=== PATIENT | male | born 1960 | race Caucasian/White ===

== ENCOUNTER → 2020-07-10 | Outpatient (CLI) | payer BC ==
--- NOTE | 2020-07-12 23:56 | CT ---
EXAMINATION TYPE: CT abdomen pelvis w con DATE OF EXAM: 07/10/2020 COMPARISON: None HISTORY: Abdominal pain, hernia CT DLP: 946.5 mGycm Automated exposure control for dose reduction was used. TECHNIQUE: Helical acquisition of images was performed from the lung bases through the pelvis. CONTRAST: Performed with Oral Contrast and with IV Contrast, patient injected with 100 mL of Isovue 300. FINDINGS: LUNG BASES: Normal. LIVER: Normal. BILIARY SYSTEM: Normal. PANCREAS: Normal. SPLEEN: Normal. ADRENALS: Normal. KIDNEYS: Normal. BOWEL: No obstruction. Within the umbilical region there is a 2.1 x 2.8 x 2.7 cm eccentric masslike thickening of the anterior small bowel loop and a small fat-containing umbilical hernia. There is foc i of gas within this soft tissue thickening making a somewhat linear course towards the abdominal wal l (8:62) and a focus of gas seen within the umbilical subcutaneous soft tissue thickening (8:63). The re is no oral contrast extravasation seen within the masslike thickening or umbilical hernia. PERITONEUM: No pneumoperitoneum. No free fluid. LYMPH NODES: No lymphadenopathy. PELVIS: Normal. VASCULATURE: No abdominal aortic aneurysm. MUSCULOSKELETAL: Degenerative changes of the spine. Grade 1 anterolisthesis of L3 on L4. IMPRESSION: Small fat-containing umbilical hernia, with 2.1 x 2.8 x 2.7 cm eccentric area of masslike thickening of the adjacent anterior small bowel loop just deep to the abdominal wall. Foci of gas within the sof t tissue thickening and within the umbilicus subcutaneous soft tissue may represent fistulous communi cation, however no continuous tract is seen and there is no oral contrast extravasation. If patient h as had prior herniorrhaphy, findings may represent postsurgical and masslike thickening with tetherin g and/or erosion of the small bowel loop. Differential also includes neoplasm.
== END | disposition home or self-care (01) ==
LOC: RADCTMAIN 16:18
PROVIDERS: ATTEND Family Medicine
DX: K42.9 Umbilical hernia without obstruction or gangrene (principal)
CPT/HCPCS: 74177; Q9967

== ENCOUNTER 2020-09-24 12:30 | Inpatient (IN) | payer BC ==
[2020-09-15 16:10] VITALS: BMI 27.2
[2020-10-02] MEDS ORDERED: ACETAMINOPHEN TAB 500 MG TAB PO PRN (05:00)
[2020-10-02] MEDS ORDERED: ALVIMOPAN 12 MG CAPSULE PO PRN (05:00)
[2020-10-02] MEDS ORDERED: HEPARIN SODIUM,PORCINE 5,000 UNIT/ML 1 ML VIAL SQ PRN (06:00)
[2020-10-02] MEDS ORDERED: LACTATED RINGERS 1,000 ML IV ONE ×3 (08:46→11:19)
[2020-10-02] MEDS ORDERED: ONDANSETRON 4 MG/2 ML VIAL IVP ONE (09:02)
[2020-10-02] MEDS ORDERED: LIDOCAINE 1% (10MG/ML) FOR IV START INTRADERMA PRN (09:02)
[2020-10-02] MEDS ORDERED: DEXAMETHASONE SOD PHOSPHATE 4 MG/ML 1 ML VIAL IV ONE (09:02)
--- NOTE | 2020-10-02 09:36 | P.GSHP ---
History of Present Illness H&P Date: 10/02/20 Chief Complaint: Umbilical wound 60-year-old male seen in the office one month ago. Patient has complaints of drainage of purulent fluid from the umbilicus for the last few months. Patient with history of umbilical hernia repair with mesh 12 years ago. Patient had recent CAT scan showing thickened bowel loops with air in the subcutaneous space, fistula not excluded. Patient says the draining region will open and close periodically. Mild discomfort. No fevers. No air or stool noted. Past Medical History Additional Past Medical History / Comment(s): umbilical wound History of Any Multi-Drug Resistant Organisms: None Reported Past Surgical History: Hernia Repair, Orthopedic Surgery Additional Past Surgical History / Comment(s): umbilical hernia repair, sinus surgery,rt knee repair torn meniscus, wisdom teeth Past Anesthesia/Blood Transfusion Reactions: No Reported Reaction Smoking Status: Former smoker - Past Family History Father Family Medical History: Cancer Additional Family Medical History / Comment(s): lung cancer Brother(s) Family Medical History: Cancer Medications and Allergies Home Medications Medication Instructions Recorded Confirmed Type Cholecalciferol [Vitamin D3 (25 2,000 unit PO DAILY 09/15/20 10/02/20 History Mcg = 1000 Iu)] Multivitamin/Iron/Folic Acid 1 each PO DAILY 09/15/20 10/02/20 History [Centrum Adults Tablet] Catarina-3 Fatty Acids/Fish Oil [Fish 1 each PO DAILY 09/15/20 10/02/20 History Oil 1,000 mg Softgel] Zinc 50 mg PO DAILY 09/15/20 10/02/20 History Allergies Allergy/AdvReac Type Severity Reaction Status Date / Time No Known Allergies Allergy Verified 10/02/20 08:46 Surgical - Exam Vital Signs Temp Pulse Resp BP Pulse Ox 97.8 F 98 16 146/91 98 10/02/20 09:15 10/02/20 09:15 10/02/20 09:15 10/02/20 09:15 10/02/20 09:15 Physical exam: General: Well-developed, well-nourished HEENT: Normocephalic, sclerae nonicteric Abdomen: Nontender, nondistended, wound at base of umbilicus with previous curvilinear infraumbilical scar, serosanguineous drainage noted Extremities: No edema Neuro: Alert and oriented Assessment and Plan (1) Open wound of umbilical region Narrative/Plan: Will proceed with exploration umbilical wound with plans for umbillectomy. Patient may require mesh removal and or conversion to laparotomy for bowel resection. Risks of bleeding, infection, recurrent wound, need for mesh removal, recurrent hernia, anastomotic leak if bowel resection required, abscess, adhesions, loss of bellybutton, anesthesia related complications. He understands and wishes to proceed. Current Visit: Yes Status: Acute Code(s): S31.105A - UNSP OPN WND ABD WALL, PERIUMB RGN W/O PENET PERIT CAV, INIT SNOMED Code(s): 941423537
[2020-10-02] MEDS ORDERED: NEOSTIGMINE 1 MG/ML 10 ML VIAL ONE (09:45)
[2020-10-02] MEDS ORDERED: GLYCOPYRROLATE 0.2 MG/ML 2 ML VIAL ONE (09:45)
[2020-10-02] MEDS ORDERED: fentaNYL (PF) 50 MCG/ML 2 ML AMP ONE (09:45)
[2020-10-02] MEDS ORDERED: LIDOCAINE 1% INJ 10MG/ML (20 ML MDV) ONE (09:45)
[2020-10-02] MEDS ORDERED: SUCCINYLCHOLINE CHLORIDE 100 MG/5 ML SYR IV ONE (09:45)
[2020-10-02] MEDS ORDERED: ROCURONIUM 10 MG/ML (10 ML VIAL) IV ONE (09:45)
[2020-10-02] MEDS ORDERED: MIDAZOLAM 2 MG/2 ML VIAL ONE (09:45)
[2020-10-02] MEDS ORDERED: PROPOFOL 10 MG/ML 20 ML VIAL IV ONE (09:45)
[2020-10-02] MEDS ORDERED: metroNIDAZOLE-NS PMX 500 MG in SALINE 1 100ML.BAG IVPB ONE (10:30)
[2020-10-02] MEDS ORDERED: ONDANSETRON 4 MG/2 ML VIAL IVP PRN (11:43)
[2020-10-02] MEDS ORDERED: METOCLOPRAMIDE 5 MG/ML 2 ML VIAL IVP PRN (11:43)
[2020-10-02] MEDS ORDERED: MEPERIDINE 50 MG/ML SYRINGE IVP ONE ×2 (11:50→12:03)
[2020-10-02] MEDS: KETOROLAC 15 MG/ML 1 ML VIAL IVP PRN (11:52)
--- NOTE | 2020-10-02 12:30 | P.OP ---
Date of Procedure: 10/02/20 Procedure(s) Performed: PREOPERATIVE DIAGNOSIS: Umbilical wound, ventral hernia POSTOPERATIVE DIAGNOSIS: Umbilectomy, small bowel resection, removal prosthetic mesh, repair ventral hernia PROCEDURE: Umbilical herniorrhaphy SURGEON: Lalito EBL: Minimal ANESTHESIA: General COMPLICATIONS: None OPERATIVE PROCEDURE: The patient was placed in the operating table in the supine position. An elliptical incision was made around the umbilicus. Dissection through the subcutaneous fat took place using electrocautery. As we were dissecting above the umbilicus a portion of preperitoneal fat was identified coming through a ventral hernia defect measuring approximately 1 cm in size. This was 2 cm above the base of the umbilicus. As we approached the base of the umbilicus we saw that there was a dark material and as we inspected this further noticed that this represented mesh that was adherent to the overlying umbilicus. The fascia was opened. We lengthened our incision slightly superiorly and inferiorly. I entered the peritoneal cavity. There was 2 loops of bowel that were densely adherent to the peritoneum at the umbilicus. As we inspected this more closely and continued our dissection we identified that the mesh was present in the lumen of these 2 bowel loops that were stuck to one another. T hankfully these 2 bowel loops were in close proximity. Once we had the bowel completely freed from the fascia the bowel was divided proximal and distal to the fistula segment using a linear 75 stapler. The antimesenteric portion of the staple line was excised and a [id number] anastomosis took place using a linear 75 stapler. The remaining defect was closed using a TX 60 device. The TX 60 stapler line was imbricated using interrupted 3-0 GI silk sutures. The mesentery had been divided using a LigaSure device. The specimen was passed off at that time. A 3-0 GI silk crotch stitch was placed. The mesenteric defect was reapproximated using a running 3-0 Vicryl suture. The fascia was then carefully inspected. One additional small area was palpated and thought to represent a small piece of mesh and this was excised. No additional mesh was evident. After the fascial edges were debrided sharply we reapproximated using interrupted [id number] #1 Vicryl sutures. The subcutaneous tissues were closed using 3-0 Vicryl sutures. Skin was closed using uri. Sterile dressing applied. DISPOSITION: Stable to recovery room
[2020-10-02] MEDS: LACTATED RINGERS 1,000 ML IV SCH (14:34)
[2020-10-02] MEDS: D5-0.45% NACL WITH KCL 20MEQ/L 1,000 ML IV SCH ×2 (16:54→21:25)
[2020-10-02] MEDS: PIPERACILLIN-TAZOBACTAM 3.375 GM in SODIUM CHLORIDE 0.9% 100 ML IVPB SCH ×2 (16:55→23:16)
[2020-10-02] MEDS: HEPARIN SODIUM,PORCINE 5,000 UNIT/ML 1 ML VIAL SQ SCH ×2 (17:11→23:16)
[2020-10-02] MEDS: HYDROmorphone 1 MG/ML 1 ML SYRINGE IVP PRN (21:24)
[2020-10-02] MEDS: metroNIDAZOLE-NS PMX 500 MG in SALINE 1 100ML.BAG IVPB SCH (21:24)
[2020-10-02] MEDS: FAMOTIDINE 20 MG/2 ML VIAL IV SCH (21:24)
--- NOTE | 2020-10-02 22:14 | CONS ---
CONSULTATION I am covering for Dr. Hoskins. DATE OF SERVICE: 10/02/2020 REASON FOR CONSULTATION: Advice regarding smoking and other medical issues, requested by Dr. Starkey. HISTORY OF PRESENT ILLNESS: This 60-year-old gentleman with a past medical history of hyperlipidemia, history of umbilical wound, hernia repair, history of DJD, underwent umbilical herniorrhaphy by Dr. Starkey. The patient tolerated the procedure well. There is no history of any fever, rigor or chills. No history of headache, loss of consciousness, seizures at this time. PAST MEDICAL HISTORY: History of umbilical wound, history of hernia surgery, DJD. MEDICATIONS: Medications prior to admission include zinc, omega-3 fatty acids, multivitamins, cholecalciferol, oxycodone, Augmentin. ALLERGIES: NONE. FAMILY HISTORY: History of lung cancer in the family. SOCIAL HISTORY: Occasional alcohol intake. REVIEW OF SYSTEMS: ENT: No diminished hearing. No diminished vision. CARDIOVASCULAR SYSTEM: No angina, palpitations. RESPIRATORY SYSTEM: As mentioned earlier. GI: As mentioned earlier. : No dysuria or retention. NERVOUS SYSTEM: No numbness, weakness. ALLERGY/IMMUNOLOGY: No asthma, hayfever. MUSCULOSKELETAL: As mentioned earlier. HEMATOLOGY/ONCOLOGY: No history of anemia. ENDOCRINE: No history of diabetes, hypothyroidism. CONSTITUTIONAL: As mentioned earlier. DERMATOLOGY: Negative. RHEUMATOLOGY: Negative. PSYCHIATRY: As mentioned earlier. PHYSICAL EXAMINATION: Patient alert and x3. Pulse 72, blood pressure 102/72, respiration 20, temperature normal, pulse ox 94% on room air. HEENT: Conjunctivae normal. NECK: No jugular venous distention. CARDIOVASCULAR SYSTEM: S1, S2 muffled. RESPIRATORY SYSTEM: Breath sounds diminished at the bases. No rhonchi. No crackles. ABDOMEN: Soft. Status post surgery. No mass palpable. LEGS: No edema. No swelling. NERVOUS SYSTEM: Higher functions as mentioned earlier. Moves all 4 limbs. No focal motor or sensory deficit. LYMPHATICS: No lymph node palpable in neck, axillae or groin. SKIN: No ulcer, rash, bleeding. JOINTS: No active deforming arthropathy. LABS: Cholesterol is 229. Other labs are normal. ASSESSMENT: 1. Status post umbilical herniorrhaphy for umbilical wound and ventral hernia. 2. History of degenerative joint disease. 3. History of sinus surgery. 4. Hyperlipidemia. 5. Remote history of nicotine dependence. 6. FULL CODE. RECOMMENDATIONS AND DISCUSSION: In this 69-year-old gentleman who presented after surgery, at this time I would recommend resuming the home medications. DVT prophylaxis. Incentive spirometry. I would also recommend to follow up with the primary physician closely regarding the hyperlipidemia which was noted recently. Otherwise, we will follow the patient closely with you. Thank you, Dr. Starkey, for letting us participate in the care of this patient. MMBRANDONL / IJN: [id number] /
[2020-10-03] MEDS: HYDROmorphone 1 MG/ML 1 ML SYRINGE IVP PRN (05:36)
[2020-10-03] MEDS: D5-0.45% NACL WITH KCL 20MEQ/L 1,000 ML IV SCH ×3 (05:37→21:16)
[2020-10-03] MEDS: metroNIDAZOLE-NS PMX 500 MG in SALINE 1 100ML.BAG IVPB SCH ×3 (05:37→20:15)
[2020-10-03 06:44] LABS: Basophils % (A) 0 %; Eosinophils % (A) 0 %; HCT 36.5 % (39.0-53.0); HGB 12.4 gm/dL (13.0-17.5); Lymphocytes # (A) 1.3 k/uL (1.0-4.8); Lymphocytes % (A) 9 %; MCH 29.8 pg (25.0-35.0); MCV 87.6 fL (80.0-100.0); Monocytes % (A) 7 %; Neutrophils # (A) 11.5 k/uL (1.3-7.7); Neutrophils % (A) 82 %; Platelet Count 248 k/uL (150-450); RBC 4.17 m/uL (4.30-5.90); RDW 12.9 % (11.5-15.5); WBC 14.1 k/uL (3.8-10.6)
[2020-10-03] MEDS ORDERED: HYDROmorphone 0.5 MG/0.5 ML SYRINGE IVP PRN (07:00)
[2020-10-03] MEDS: LACTATED RINGERS 1,000 ML IV SCH (07:06)
[2020-10-03] MEDS: PIPERACILLIN-TAZOBACTAM 3.375 GM in SODIUM CHLORIDE 0.9% 100 ML IVPB SCH ×3 (07:50→23:18)
[2020-10-03] MEDS: ALVIMOPAN 12 MG CAPSULE PO SCH ×2 (07:51→20:14)
[2020-10-03] MEDS: FAMOTIDINE 20 MG/2 ML VIAL IV SCH ×2 (07:51→20:13)
[2020-10-03] MEDS: HEPARIN SODIUM,PORCINE 5,000 UNIT/ML 1 ML VIAL SQ SCH ×3 (07:51→23:17)
[2020-10-03] MEDS: KETOROLAC 15 MG/ML 1 ML VIAL IVP PRN ×3 (09:25→23:24)
[2020-10-03 09:38] LABS: African American GFR (CKD) 75.7 (60.0-200.0); Anion Gap 8.8 mmol/L (4.00-12.00); BUN/Creat Ratio 14.17 Ratio (12.00-20.00); Calcium 8.3 mg/dL (8.7-10.3); Carbon Dioxide 24.2 mmol/L (21.6-31.8); Non-African American GFR(CKD) 65.3 (60.0-200.0); Potassium 4.6 mmol/L (3.5-5.5)
--- NOTE | 2020-10-03 10:40 | P.PN ---
Progress Note - Text Progress Note Date: 10/03/20 The patient has some complaints of incisional pain. On exam her vital signs are stable. Abdomen soft. Incision is clean dry tach. Status post small bowel resection and removal of umbilical mesh. Patient will continue receive supportive care. We will remove his Dyer catheter this morning.
[2020-10-03 14:51] LABS: Appearance,Urine Clear (Clear); Bilirubin,Urine Negative (Negative); Blood,Urine Negative (Negative); Color,Urine Light Yellow; Glucose,Urine (UA) Negative (Negative); Ketones,Urine Negative (Negative); Leukocyte Esterase,Urine Small (Negative); Nitrite,Urine Negative (Negative); PH, Urine 5.5 (5.0-8.0); Protein,Urine Negative (Negative); RBC,Urine 1 /hpf (0-5); Specific Gravity,Urine 1.009 (1.001-1.035); Urobilinogen,Urine <2.0 mg/dL (<2.0); WBC,Urine 9 /hpf (0-5)
--- NOTE | 2020-10-03 15:37 | PN ---
PROGRESS NOTE DATE OF SERVICE: 10/03/2020 I am covering for Dr. Hoskins. This 60-year-old gentleman who was admitted after umbilical herniorrhaphy. He still complains of abdominal pain. No chest pain. No palpitations. No fever. The patient had mild fever yesterday. PHYSICAL EXAMINATION: Alert and oriented x3. Pulse 69, blood pressure 120/60, respiration 18, temperature 98.1, pulse ox 94% on room air. HEENT: Conjunctivae normal. NECK: No JVD. CARDIOVASCULAR: S1, S2. RESPIRATION: Breath sounds diminished in the bases. No rhonchi. No crackles. ABDOMEN: Soft. Status post surgery. LEGS are no edema. No swelling. NERVOUS SYSTEM: No focal deficits. LABS: WBC 14.1, hemoglobin 12.4, calcium is 8.3. UA noted. 9 WBCs. ASSESSMENT: 1. Status post umbilical herniorrhaphy from umbilical wound and ventral hernia. 2. History of degenerative joint disease. 3. Possible acute urinary tract infection. 4. History of sinus surgery. 5. Hyperlipidemia. 6. Remote history of nicotine dependence. 7. FULL CODE. RECOMMENDATIONS AND DISCUSSION: I recommend to continue current medications, management and symptomatic treatment. I recommend short course of antibiotics. Otherwise, urine culture. Continue the rest of medications. Further recommendations to follow. MMODL / IJN: [id number] /
[2020-10-04] MEDS: metroNIDAZOLE-NS PMX 500 MG in SALINE 1 100ML.BAG IVPB SCH ×3 (03:42→19:32)
[2020-10-04] MEDS: D5-0.45% NACL WITH KCL 20MEQ/L 1,000 ML IV SCH ×3 (03:43→19:31)
[2020-10-04 06:27] LABS: Basophils # (A) 0.1 k/uL (0-0.2); Basophils % (A) 0 %; Eosinophils # (A) 0.1 k/uL (0-0.7); Eosinophils % (A) 1 %; HCT 32.3 % (39.0-53.0); HGB 11.5 gm/dL (13.0-17.5); Lymphocytes # (A) 1.7 k/uL (1.0-4.8); Lymphocytes % (A) 15 %; MCHC 35.5 g/dL (31.0-37.0); MCV 87.3 fL (80.0-100.0); Monocytes # (A) 0.7 k/uL (0-1.0); Monocytes % (A) 6 %; Neutrophils # (A) 8.7 k/uL (1.3-7.7); Neutrophils % (A) 76 %; Platelet Count 209 k/uL (150-450); RDW 12.8 % (11.5-15.5); WBC 11.4 k/uL (3.8-10.6)
[2020-10-04] MEDS: FAMOTIDINE 20 MG/2 ML VIAL IV SCH ×2 (07:13→19:31)
[2020-10-04] MEDS: ACETAMINOPHEN TAB 325 MG TAB PO PRN ×2 (07:13→22:41)
[2020-10-04] MEDS: HEPARIN SODIUM,PORCINE 5,000 UNIT/ML 1 ML VIAL SQ SCH ×3 (07:13→20:26)
[2020-10-04] MEDS: ALVIMOPAN 12 MG CAPSULE PO SCH ×2 (07:14→19:02)
[2020-10-04] MEDS: PIPERACILLIN-TAZOBACTAM 3.375 GM in SODIUM CHLORIDE 0.9% 100 ML IVPB SCH ×3 (07:14→23:00)
[2020-10-04 10:02] LABS: African American GFR (CKD) 84.1 (60.0-200.0); Anion Gap 4.8 mmol/L (4.00-12.00); BUN/Creat Ratio 12.73 Ratio (12.00-20.00); Calcium 8.5 mg/dL (8.7-10.3); Carbon Dioxide 25.2 mmol/L (21.6-31.8); Non-African American GFR(CKD) 72.6 (60.0-200.0)
[2020-10-04] MEDS: LACTATED RINGERS 1,000 ML IV SCH (10:24)
--- NOTE | 2020-10-04 11:22 | P.PN ---
Progress Note - Text Progress Note Date: 10/04/20 The patient did have some pain control issues last night. He appears to be low but grumpy this morning. On exam vital signs are stable abdomen soft her incisions clean dry tach. Patient was educated onset spirometer. He will attempt to use it more today. He will have his diet slowly advanced.
--- NOTE | 2020-10-04 17:50 | XR ---
EXAMINATION TYPE: XR chest 1V portable DATE OF EXAM: 10/04/2020 COMPARISON: NONE HISTORY: Pneumonia. Short of breath. TECHNIQUE: FINDINGS: Heart and mediastinum are normal. Lungs are clear. Diaphragm is normal. Bony thorax appears normal. IMPRESSION: Normal chest.
--- NOTE | 2020-10-04 18:15 | PN ---
PROGRESS NOTE DATE OF SERVICE: 10/04/2020 This 60-year-old gentleman who was admitted with umbilical herniorrhaphy from umbilical wound and ventral hernia, is being closely monitored. Patient is complaining of no chest pain. No palpitations. No fever. Patient has mild UTI. PHYSICAL EXAMINATION: Alert and oriented x3. Pulse is 97. Blood pressure 140/80, respiration 17, temperature is 100.4, pulse ox 93% on room air. HEENT is conjunctivae normal. NECK: No JVD. CARDIOVASCULAR: S1, S2 normal. RESPIRATORY: Breath sounds diminished in the bases. No rhonchi. No crackles. ABDOMEN: Soft, status post surgery. LEGS are no edema. No swelling. NERVOUS SYSTEM: No focal deficits. LABS: WBC 11.4, hemoglobin 11.5. ASSESSMENT: 1. Status post umbilical herniorrhaphy and umbilical wound and ventral hernia. 2. History of degenerative joint disease. 3. Possible acute urinary tract infection. 4. History of sinus surgery. 5. Fever for evaluation. 6. Hyperlipidemia. 7. Remote history of nicotine dependence. 8. FULL CODE. RECOMMENDATIONS AND DISCUSSION: Continue current medications, management and symptomatic treatment. I would also recommend a portable chest x-ray to complete the workup. Otherwise, continue the antibiotic. Encourage incentive spirometry. Closely follow with surgery. Further recommendations to follow. MMODL / IJN: [id number] /
[2020-10-05] MEDS: metroNIDAZOLE-NS PMX 500 MG in SALINE 1 100ML.BAG IVPB SCH (03:40)
[2020-10-05] MEDS: D5-0.45% NACL WITH KCL 20MEQ/L 1,000 ML IV SCH (03:40)
[2020-10-05 03:50] VITALS: TEMP 98.5
[2020-10-05 07:29] VITALS: RESP 18
[2020-10-05] MEDS: ALVIMOPAN 12 MG CAPSULE PO SCH (07:32)
[2020-10-05] MEDS: FAMOTIDINE 20 MG/2 ML VIAL IV SCH (07:35)
[2020-10-05] MEDS: HEPARIN SODIUM,PORCINE 5,000 UNIT/ML 1 ML VIAL SQ SCH (07:35)
[2020-10-05] MEDS: PIPERACILLIN-TAZOBACTAM 3.375 GM in SODIUM CHLORIDE 0.9% 100 ML IVPB SCH (07:35)
[2020-10-05 09:09] LABS: Basophils # (A) 0.1 k/uL (0-0.2); Basophils % (A) 1 %; Eosinophils # (A) 0.3 k/uL (0-0.7); Eosinophils % (A) 2 %; HGB 12.5 gm/dL (13.0-17.5); Lymphocytes # (A) 1.5 k/uL (1.0-4.8); Lymphocytes % (A) 14 %; MCH 29.5 pg (25.0-35.0); MCHC 33.7 g/dL (31.0-37.0); MCV 87.6 fL (80.0-100.0); Mean Platelet Volume 7.1; Monocytes # (A) 0.6 k/uL (0-1.0); Monocytes % (A) 6 %; Neutrophils # (A) 8.4 k/uL (1.3-7.7); Neutrophils % (A) 76 %; Platelet Count 272 k/uL (150-450); RBC 4.22 m/uL (4.30-5.90); RDW 12.9 % (11.5-15.5); WBC 11.1 k/uL (3.8-10.6)
[2020-10-05] MEDS: LACTATED RINGERS 1,000 ML IV SCH (12:22)
[2020-10-05 13:42] VITALS: BP 158/94; PULSE 77
--- NOTE | 2020-10-05 14:41 | P.DS ---
Providers Date of admission: 10/02/20 08:30 Expected date of discharge: 10/05/20 Attending physician: Diomedes Starkey Consults: 10/02/20 11:43 Consult Physician Routine Consulting Provider: Toby Hoskins Consult Reason/Comments: Medical management Do you want consulting provider notified?: Yes Primary care physician: Amira Franco, NPC - Discharge Diagnosis(es) (1) Open wound of umbilical region Patient admitted last Monday after elective surgical exploration of his umbilical wound. 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 The mesh, umbilicus, and bowel was excised as one piece. Area was closed with absorbable Vicryl sutures. Patient doing well postoperatively. Pain is improving. Low-grade fever yesterday. Patient would like to go home. Tolerating his diet. We'll discharge with oral antibiotics and when necessary analgesics. Follow-up one week. Current Visit: Yes Status: Acute Plan - Discharge Summary Discharge Rx Participant: No New Discharge Prescriptions: New Amoxicillin/Potassium Clav [Augmentin 875-125 Tablet] 1 tab PO BID 7 Days #14 tab oxyCODONE HCL [OxyIR] 5 mg PO Q6H PRN 3 Days #6 tab PRN Reason: Breakthrough Pain No Action Hancock-3 Fatty Acids/Fish Oil [Fish Oil 1,000 mg Softgel] 1 each PO DAILY Cholecalciferol [Vitamin D3 (25 Mcg = 1000 Iu)] 2,000 unit PO DAILY Multivitamin/Iron/Folic Acid [Centrum Adults Tablet] 1 each PO DAILY Zinc 50 mg PO DAILY Discharge Medication List Cholecalciferol [Vitamin D3 (25 Mcg = 1000 Iu)] 2,000 unit PO DAILY 09/15/20 [History] Multivitamin/Iron/Folic Acid [Centrum Adults Tablet] 1 each PO DAILY 09/15/20 [History] Hancock-3 Fatty Acids/Fish Oil [Fish Oil 1,000 mg Softgel] 1 each PO DAILY 0 09/15/20 [History] Zinc 50 mg PO DAILY 09/15/20 [History] Amoxicillin/Potassium Clav [Augmentin 875-125 Tablet] 1 tab PO BID 7 Days #14 tab 10/02/20 [Rx] oxyCODONE HCL [OxyIR] 5 mg PO Q6H PRN 3 Days #6 tab 10/02/20 [Rx] Follow up Appointment(s)/Referral(s): Diomedes Starkey MD [Medical Doctor] - 1 Week
[2020-10-05] MEDS ORDERED: metroNIDAZOLE 500 MG TAB PO SCH (16:00)
--- NOTE | 2020-10-05 16:34 | PN ---
PROGRESS NOTE DATE OF SERVICE: 10/05/2020 This 60-year-old gentleman who was admitted after umbilical herniorrhaphy is improving significantly. No chest pain. No palpitations. No fever. PHYSICAL EXAMINATION: Alert and oriented times three. Pulse 77, blood pressure 150/94, respirations 18, temperature 98.5, pulse ox 98% on room air. HEENT: Conjunctivae normal. NECK: No JVD. CARDIOVASCULAR: S1, S2. RESPIRATORY: Breath sounds diminished in the bases. No rhonchi. No crackles. ABDOMEN: Soft, status post surgery. LEGS no edema. No swelling. NERVOUS SYSTEM: No focal deficits. LABS: WBC 11.1, hemoglobin 12.5. ASSESSMENT: 1. Status post umbilical herniorrhaphy. 2. History of degenerative joint disease. 3. Possible acute urinary tract infection, improved. 4. History of sinus surgery. 5. Fever, improved. 6. Hyperlipidemia. 7. Remote history of nicotine dependence. 8. FULL CODE. RECOMMENDATIONS AND DISCUSSION: I recommend to continue current medications, symptomatic treatment. Otherwise, at this time, I recommend continue the current medications. The rest of the recommendations per Surgery and follow up with primary physician closely after discharge. Further recommendations to follow. MMODL / IJN: [id number] /
[2020-10-05] MEDS ORDERED: FAMOTIDINE 20 MG TAB PO SCH (21:00)
== END 2020-10-05 14:59 | disposition home or self-care (01) | DRG 330 ==
LOC: 2ORMAIN 10-02 08:30 → 4SSUR 10-02 11:59
PROVIDERS: ADMIT Surgery; ATTEND Surgery
PROC: 0WQF0ZZ Repair Abdominal Wall, Open Approach (ICD-10-PCS; 2020-10-02)
PROC: 0WPF0JZ Removal of Synthetic Substitute from Abdominal Wall, Open Approach (ICD-10-PCS; 2020-10-02)
PROC: 0DB80ZZ Excision of Small Intestine, Open Approach (ICD-10-PCS; principal; 2020-10-02 10:10)
DX: K43.9 Ventral hernia without obstruction or gangrene (principal); T81.83XA Persistent postprocedural fistula, initial encounter; K63.2 Fistula of intestine; N39.0 Urinary tract infection, site not specified; E78.5 Hyperlipidemia, unspecified; M19.90 Unspecified osteoarthritis, unspecified site; Z79.899 Other long term (current) drug therapy; Z98.890 Other specified postprocedural states; Z87.828 Personal history of other (healed) physical injury and trauma; Z87.891 Personal history of nicotine dependence; Z80.1 Family history of malignant neoplasm of trachea, bronchus and lung
CPT/HCPCS: 71045; 80048; 81001; 85025; 87040; 87086; 88302; 88307

== ENCOUNTER → 2022-01-11 | Day surgery (SDC) | payer BC ==
[2022-01-10 10:32] VITALS: BMI 27.2
[~2022-01-11] MED LIST: LACTATED RINGERS 1,000 ML IV SCH; LIDOCAINE 2% INJ 20 MG/ML (2 ML VIAL) ONE; PROPOFOL 10 MG/ML 20 ML VIAL IV ONE
[2022-01-11 07:53] VITALS: TEMP 97.9
--- NOTE | 2022-01-11 08:42 | P.GSHP ---
History of Present Illness H&P Date: 01/11/22 Chief Complaint: Colon cancer screening 61-year-old male here today for colonoscopy. He has had 2-3 prior colonoscopies and has had polyps with each study. No bowel complaints currently. No family history of colon cancer. Past Medical History Past Medical History: No Reported History Additional Past Medical History / Comment(s): TINNITUS History of Any Multi-Drug Resistant Organisms: None Reported Past Surgical History: Hernia Repair, Orthopedic Surgery Additional Past Surgical History / Comment(s): umbilical hernia repair, sinus surgery,rt knee repair torn meniscus, wisdom teeth, COLONOSCOPY, Past Anesthesia/Blood Transfusion Reactions: No Reported Reaction Smoking Status: Former smoker - Past Family History Father Family Medical History: Cancer Additional Family Medical History / Comment(s): lung cancer Brother(s) Family Medical History: Cancer Medications and Allergies Home Medications Medication Instructions Recorded Confirmed Type Cholecalciferol [Vitamin D3 (25 2,000 unit PO DAILY 09/15/20 01/10/22 History Mcg = 1000 Iu)] Multivitamin/Iron/Folic Acid 1 each PO DAILY 09/15/20 01/10/22 History [Centrum Adults Tablet] Henefer-3 Fatty Acids/Fish Oil [Fish 1 each PO DAILY 09/15/20 01/10/22 History Oil 1,000 mg Softgel] Zinc 50 mg PO DAILY 09/15/20 01/10/22 History Allergies Allergy/AdvReac Type Severity Reaction Status Date / Time No Known Allergies Allergy Verified 01/11/22 07:46 Surgical - Exam Vital Signs Temp Pulse Resp BP Pulse Ox 97.9 F 75 20 168/87 99 01/11/22 07:52 01/11/22 07:52 01/11/22 07:52 01/11/22 07:52 01/11/22 07:52 Physical exam: General: Well-developed, well-nourished HEENT: Normocephalic, sclerae nonicteric Abdomen: Nontender, nondistended Extremities: No edema Neuro: Alert and oriented Assessment and Plan (1) Colon cancer screening Narrative/Plan: Will proceed with colonoscopy at this time Current Visit: Yes Status: Acute Code(s): Z12.11 - ENCOUNTER FOR SCREENING FOR MALIGNANT NEOPLASM OF COLON SNOMED Code(s): 794052815
--- NOTE | 2022-01-11 08:56 | P.PCN ---
Date of Procedure: 01/11/22 Procedure(s) Performed: PREOPERATIVE DIAGNOSIS: Colon cancer screening, history of polyps POSTOPERATIVE DIAGNOSIS: Normal exam PROCEDURE: Colonoscopy ANESTHESIA: MAC SURGEON: Diomedes Starkey M.D. SPECIMENS: None ENDOSCOPIC PROCEDURE: The patient was placed on the endoscopy table in the left decubitus position. The Olympus colonoscope was inserted into the anus and passed under direct visualization to the base of the cecum. The appendiceal orifice was visualized. From that point the scope was slowly withdrawn inspecting all surfaces carefully. There were no neoplastic inflammatory or polypoid lesions throughout the cecum, ascending, transverse, descending, sigmoid and rectum. There was no visible diverticulosis noted. Digital rectal examination was normal. The patient was taken to the recovery room in stable condition per anesthesia guidelines. RECOMMENDATIONS: Resume diet. Follow-up colonoscopy 5 years.
[2022-01-11 09:02] VITALS: RESP 16
[2022-01-11 09:23] VITALS: BP 137/86; PULSE 62
== END ==
LOC: ORWHC2ENDO 07:27
PROVIDERS: ATTEND Surgery
DX: Z12.11 Encounter for screening for malignant neoplasm of colon (principal); Z86.010 Personal history of colon polyps; Z80.1 Family history of malignant neoplasm of trachea, bronchus and lung; Z87.891 Personal history of nicotine dependence
CPT/HCPCS: 45378; J2704; J2001